=== PATIENT | female | born 1965 | race Two or more races ===

== ENCOUNTER 2022-12-05 09:35 | Day surgery (SDC) | payer OTHER ==
[2022-12-01 16:12] VITALS: BMI 29.2
[2022-12-05 11:10] VITALS: TEMP 97
[2022-12-05 12:22] VITALS: BP 117/74; PULSE 66; RESP 18
== END 2022-12-05 12:20 | disposition home or self-care (01) ==
LOC: FASU-ENDO 09:35
PROVIDERS: ATTEND Internal Medicine Gastroenterology
PROC: 0DB68ZX Excision of Stomach, Via Natural or Artificial Opening Endoscopic, Diagnostic (ICD-10-PCS; 2022-12-05)
PROC: 0DB48ZX Excision of Esophagogastric Junction, Via Natural or Artificial Opening Endoscopic, Diagnostic (ICD-10-PCS; 2022-12-05)
PROC: 0DB98ZX Excision of Duodenum, Via Natural or Artificial Opening Endoscopic, Diagnostic (ICD-10-PCS; principal; 2022-12-05 10:52)
DX: K29.50 Unspecified chronic gastritis without bleeding (principal); B96.81 Helicobacter pylori [H. pylori] as the cause of diseases classified elsewhere; K20.90 Esophagitis, unspecified without bleeding
CPT/HCPCS: 88305-TC; 88342-TC